=== PATIENT | female | born 1960 | race Caucasian/White ===

== ENCOUNTER 2019-05-08 21:39 | Emergency (ER) | payer OTHER ==
[~2019-05-08] VITALS: Ht 165.1 cm; Wt 71.7 kg
[~2019-05-08 21:39] MED LIST: ALBU2.5V7 INH; BACL10TA PO; BUPR-120 PO; CALC-823 PO; HYDR25TA4 PO; LORA-259 PO; PRO40 PO; VENL75CA PO; VITA1CAP PO
[2019-05-08 21:50] VITALS: BP_SYST 164
[2019-05-08] MEDS ORDERED: LORazepam 1 MG TABLET PO ONE (23:00)
[2019-05-08] MEDS: METOPROLOL SUCCINATE 25 MG TAB.SR.24H (TOPROL XL) PO ONE (23:31)
[2019-05-09 00:10] LABS: BASOPHILS # (AUTO) 0.1 K/uL (0.0-0.2); BASOPHILS % (AUTO) 0.7 % (0.0-2.0); EOSINOPHILS # (AUTO) 0.1 K/uL (0.0-0.4); EOSINOPHILS % (AUTO) 1.2 % (0.0-4.0); HEMATOCRIT 36.8 % (36-48); HEMOGLOBIN 12.5 g/dL (12.0-16.0); LYMPHOCYTES # (AUTO) 2.2 K/uL (1.0-5.5); LYMPHOCYTES % (AUTO) 21.2 % (20.5-51.5); MEAN CORPUSCULAR HEMOGLOBIN 31 pg (27-31); MEAN CORPUSCULAR HGB CONC 34 % (32-36); MEAN CORPUSCULAR VOLUME 92 fL (79.0-98.0); MONOCYTES # (AUTO) 0.7 K/uL (0.0-1.0); MONOCYTES % (AUTO) 6.5 % (1.7-9.3); NEUTROPHILS # (AUTO) 7.3 K/uL (1.8-7.7); NEUTROPHILS % (AUTO) 70.4 % (40.0-70.0); PLATELET COUNT (AUTO) 269 K/uL (130-430); RED CELL DISTRIBUTION WIDTH 12.4 % (9.0-15.0); WHITE BLOOD COUNT (AUTO) 10.4 K/uL (4.8-10.8)
[2019-05-09 00:30] LABS: CALCIUM 8.4 mg/dL (8.4-11.0); CREATININE 0.7 mg/dL (0.55-1.30); POTASSIUM 3.3 mmol/L (3.5-5.1)
[2019-05-09 00:44] LABS: ALBUMIN 3.2 g/dL (3.4-4.8)
[2019-05-09] MEDS ORDERED: METOPROLOL SUCCINATE 25 MG TAB.SR.24H (TOPROL XL) PO ONE (00:44)
[2019-05-09] MEDS: METOPROLOL SUCCINATE 25 MG TAB.SR.24H (TOPROL XL) PO ONE (00:47)
[2019-05-09 00:56] LABS: TOTAL BILIRUBIN 0.1 mg/dL (0.0-1.0)
[2019-05-09] MEDS ORDERED: cloNIDine HCL 0.1 MG TABLET PO ONE (01:30)
[2019-05-09] MEDS ORDERED: LORazepam 1 MG TABLET PO ONE (01:30)
[2019-05-09 02:33] VITALS: BP_SYST 162
== END 2019-05-09 02:33 | disposition home or self-care (01) ==
LOC: MERGE 21:39 → SED 21:39
DX: F41.9 Anxiety disorder, unspecified (principal); I10 Essential (primary) hypertension; I48.91 Unspecified atrial fibrillation; Z91.040 Latex allergy status; Z79.899 Other long term (current) drug therapy
CPT/HCPCS: 36415; 80053; 84484; 85025; 93005; 99284

== ENCOUNTER 2019-05-11 13:33 | Inpatient (IN) | payer OTHER ==
[~2019-05-11] VITALS: Ht 165.1 cm; Wt 70.8 kg
[2019-05-11 13:39] VITALS: BP_SYST 174
--- NOTE | 2019-05-11 13:49 | NUR ---
Patient to ER bed 3 to gown for evaluation. Side rails up. Report given to Gerald HILL.
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
[2019-05-11] MEDS ORDERED: PANTOPRAZOLE SODIUM 80 MG in NS 100 ML IV ONE (14:00)
--- NOTE | 2019-05-11 14:06 | NUR ---
PATIENT GETTING X RAY IN BED.
--- NOTE | 2019-05-11 14:11 | NUR ---
PATIENT AMBULATING TO RESTROOM WITH CANE. PATIENT HAS STEADY GAIT.
--- NOTE | 2019-05-11 14:15 | NUR ---
ER Dr. CHAUDHARI at bedside examining patient.
[2019-05-11] MEDS ORDERED: PANTOPRAZOLE SODIUM 40 MG/VIAL (PROTONIX) ONE (14:21)
[2019-05-11 14:30] LABS: BASOPHILS # (AUTO) 0.1 K/uL (0.0-0.2); BASOPHILS % (AUTO) 0.5 % (0.0-2.0); EOSINOPHILS # (AUTO) 0.1 K/uL (0.0-0.4); EOSINOPHILS % (AUTO) 0.7 % (0.0-4.0); HEMATOCRIT 38.3 % (36-48); HEMOGLOBIN 12.6 g/dL (12.0-16.0); LYMPHOCYTES % (AUTO) 19.1 % (20.5-51.5); MEAN CORPUSCULAR HEMOGLOBIN 31 pg (27-31); MEAN CORPUSCULAR HGB CONC 33 % (32-36); MEAN CORPUSCULAR VOLUME 93 fL (79.0-98.0); MONOCYTES # (AUTO) 0.5 K/uL (0.0-1.0); MONOCYTES % (AUTO) 4.8 % (1.7-9.3); NEUTROPHILS # (AUTO) 7.8 K/uL (1.8-7.7); NEUTROPHILS % (AUTO) 74.9 % (40.0-70.0); PLATELET COUNT (AUTO) 334 K/uL (130-430); RED BLOOD CELL COUNT(AUTO) 4.11 MIL/uL (4.2-6.2); RED CELL DISTRIBUTION WIDTH 12.8 % (9.0-15.0); WHITE BLOOD COUNT (AUTO) 10.5 K/uL (4.8-10.8)
[2019-05-11 14:46] LABS: CALCIUM 9.5 mg/dL (8.4-11.0); CREATININE 0.92 mg/dL (0.55-1.30); POTASSIUM 3.3 mmol/L (3.5-5.1)
[2019-05-11 14:51] LABS: ALBUMIN 3.6 g/dL (3.4-4.8); TOTAL BILIRUBIN 0.3 mg/dL (0.0-1.0)
--- NOTE | 2019-05-11 15:09 | NUR ---
DR CHAUDHARI AT BEDSIDE DOING STOOL OCCULT. IM AT BEDSIDE. PATIENT TOLERATED WELL.
--- NOTE | 2019-05-11 15:35 | NUR ---
SPOKE TO PATIENT ABOUT END OF LIFE CARE. PATIENT STATES SHE IS FULL CODE.
[2019-05-11] MEDS ORDERED: ACET-73 PO (15:59)
[2019-05-11] MEDS ORDERED: ASPI-1155 PO (15:59)
[2019-05-11] MEDS ORDERED: BUPR450T2 PO (15:59)
[2019-05-11] MEDS ORDERED: LIP10 PO (15:59)
[2019-05-11] MEDS ORDERED: BACL5TAB PO (15:59)
[2019-05-11] MEDS ORDERED: HYDR25TA4 PO (15:59)
[2019-05-11] MEDS ORDERED: Trintellix PO (15:59)
[2019-05-11] MEDS ORDERED: ALBMDI INH (15:59)
[2019-05-11] MEDS ORDERED: KLO1 PO (15:59)
[2019-05-11] MEDS ORDERED: LORA10TA7 PO (15:59)
--- NOTE | 2019-05-11 15:59 | NUR ---
Medication reconciliation completed with information provided by patient. Any prior medication reconciliation on file was reviewed and corrected.
--- NOTE | 2019-05-11 16:02 | NUR ---
Patient will be admitted to care of DR PORRAS. Admitted to MED SURGE unit. Will go to room 107A. Belongings list completed. Summary report printed. Report will be given at bedside.
[2019-05-11 16:12] LABS: HEMOGLOBIN 11.3 g/dL (12.0-16.0)
--- NOTE | 2019-05-11 16:32 | NUR ---
GAVE REPORT TO YOLI ON FLOOR.
--- NOTE | 2019-05-11 16:34 | NUR ---
Transfer to [facility]. IV present no sign or symptom of infiltration.
[2019-05-11 16:40] VITALS: BP_SYST 141
--- NOTE | 2019-05-11 16:40 | NUR ---
Admission Notes: Received patient from ER. Report received from LIZ Mejia. Diagnosis is Gastro Intestinal Bleed. Pt is alert and oriented , pt has chronic pain, 06/28. will check orders of MD. safety precaution in place, call light in reach. bed in low position. pt encouraged to call for assist, pain and any concerns.
--- NOTE | 2019-05-11 17:00 | NUR ---
CONSULT GI DR. BYRNE S/W MITCHELL FROM THE EXCHANGE DR. RINCON SOFT TOP INSTALLER AT THIS TIME
[2019-05-11 17:05] VITALS: BP_SYST 141
[2019-05-11] MEDS: D5NS 1,000 ML IV SCH (18:01)
--- NOTE | 2019-05-11 18:43 | NUR ---
CLOSING NOTES, PT HAS BEEN STABLE, C/O OF PAIN, GENERALIZED, PT HAS HISTORY OF CHRONIC PAIN. 06/[address] QUESADA FOR PAIN MEDICATION, STILL WAITING FOR MD TO CALL BACK. WILL ENDORSE TO NIGHT NURSE.
--- NOTE | 2019-05-11 18:48 | NUR ---
Deysi Kramer s/w Laura.
[2019-05-11] MEDS ORDERED: ACETAMINOPHEN 500 MG TABLET PO PRN (19:15)
[2019-05-11] MEDS ORDERED: MORPHINE 2 MG/ML INJ. SYRINGE IVP PRN (19:15)
--- NOTE | 2019-05-11 19:20 | NUR ---
OPENING NOTE RECEIVED CARE OF PT AND SBAR REPORT FROM DAY SHIFT RN, PADDY. PT IS AAOX4, SITTING UP IN BED, NO S/S OF ACUTE DISTRESS. IVF ARE INFUSING AT ORDERED RATE, NO S/S OF INFILTRATION AT IV SITE. PT ORIENTED TO USE OF CALL LIGHT AND ENCOURAGED TO CALL FOR ANY ASSISTANCE. SAFETY PRECAUTIONS ARE IN PLACE: BED IS LOCKED IN LOWEST POSITION, CALL LIGHT IS WITH PT, SIDE RAILS UP X2, BED ALARM ON. WILL MONITOR.
[2019-05-11 20:00] VITALS: BP_SYST 148
[2019-05-11] MEDS: ACETAMINOPHEN 500 MG TABLET PO SCH (21:25)
[2019-05-11] MEDS: PANTOPRAZOLE SODIUM 40 MG/VIAL (PROTONIX) IVP SCH (21:25)
--- NOTE | 2019-05-11 21:25 | NUR ---
SCHEDULED MEDICATION PASS SCHEDULED PROTONIX AND TYLENOL ADMINISTERED TO PT. MEDICATION ACTIONS AND POTENTIAL SIDE EFFECTS EXPLAINED, PT VERBALIZED UNDERSTANDING. SAFETY PRECAUTIONS MAINTAINED. WILL MONITOR.
--- NOTE | 2019-05-11 21:46 | NUR ---
Deysi Kramer s/w Alysha
--- NOTE | 2019-05-11 22:26 | NUR ---
SPOKE TO DR. QUESADA REGARDING PT'S REQUEST TO CONTINUE HER HOME MEDICATIONS. MD ORDERED A ONE TIME DOSE OF KLONOPIN 1MG PO AND ATIVAN 1 MG PO Q4H PRN FOR ANXIETY OR AGITATION. WILL CARRY OUT.
[2019-05-11] MEDS ORDERED: clonazePAM 0.5 MG TABLET PO ONE (22:30)
--- NOTE | 2019-05-11 22:32 | NUR ---
KLONOPIN ONE TIME DOSE OF KLONOPIN 1 MG PO GIVEN TO PT. MEDICATION EXPLAINED TO PT, PT VERBALIZED UNDERSTANDING. SAFETY MAINTAINED. WILL MONITOR.
[2019-05-11] MEDS: LORazepam 1 MG TABLET PO PRN (23:39)
--- NOTE | 2019-05-11 23:39 | NUR ---
ANXIETY/ATIVAN PT REPORTING ANXIETY, ATIVAN 1 MG PO ADMINISTERED. MEDICATION EXPLAINED TO PT. NO S/S OF ACUTE DISTRESS. IVF ARE INFUSING AT ORDERED RATE. SAFETY PRECAUTIONS ARE IN PLACE. WILL MONITOR.
[2019-05-12] VITALS (7 sets, daily range): BP systolic 119–138
[2019-05-12 01:20] LABS: HEMATOCRIT 29.8 % (36-48)
--- NOTE | 2019-05-12 02:30 | NUR ---
AMBULATED TO RESTROOM PT AMBULATED TO RESTROOM WITH STEADY GAIT AND ASSISTANCE FROM LEONIDES DUCKWORTH. PT RETURNED TO BED AND REPOSITIONED FOR COMFORT. SAFETY PRECAUTIONS MAINTAINED. WILL MONITOR.
[2019-05-12] MEDS: D5NS 1,000 ML IV SCH ×3 (03:14→23:15)
[2019-05-12] MEDS: LORazepam 1 MG TABLET PO PRN ×4 (04:03→23:15)
--- NOTE | 2019-05-12 04:03 | NUR ---
ANXIETY/ATIVAN PT REPORTING ANXIETY, ATIVAN 1 MG PO ADMINISTERED. PT ALSO GIVEN EAR PLUGS PER REQUEST. NO S/S OF DISTRESS. IVF INFUSING. WILL MONITOR.
--- NOTE | 2019-05-12 06:44 | NUR ---
CLOSING NOTE PT IS RESTING IN BED, NO S/S OF ACUTE DISTRESS. BREATHING IS UNLABORED TO BIPAP SETTINGS (BIPAP 6 AT 21% FIO2), VISIBLE SYMMETRICAL RISE AND FALL OF CHEST. NO SIGN OF PAIN OR DISCOMFORT. IVF ARE INFUSING AT ORDERED RATE. ALL NEEDS MET DURING SHIFT. SAFETY MAINTAINED. WILL CONTINUE TO MONITOR UNTIL PT CARE IS ENDORSED TO DAY SHIFT RN.
--- NOTE | 2019-05-12 07:10 | NUR ---
received report at the bedside. from demetrius nurse. patient aaox 4. lungs bilaterally clear. abdomen soft and non distended. iv access on the rt ac #20 D5NS at 100cc/hr infusing on well,. bed in low position, alarmed and locked. call lights within reach. instructed to call for assistance.
[2019-05-12] MEDS: ACETAMINOPHEN 500 MG TABLET PO SCH ×3 (08:06→20:15)
[2019-05-12] MEDS: ATORVASTATIN 10 MG TABLET PO SCH (08:06)
[2019-05-12] MEDS: PANTOPRAZOLE SODIUM 40 MG/VIAL (PROTONIX) IVP SCH ×2 (08:06→20:14)
[2019-05-12 08:27] LABS: HEMATOCRIT 31.8 % (36-48); HEMOGLOBIN 10.7 g/dL (12.0-16.0)
--- NOTE | 2019-05-12 08:28 | NUR ---
dr nino came to evaluate the patient. due medication given as ordered.
--- NOTE | 2019-05-12 08:38 | NUR ---
DR PORRAS CAME TO SEE PATIENT PATIENT VERBALIZED HER CONCERNED TO DR PORRAS REGARDING HER PREVIOUS ADMISSION ABOUT THE RESULTS OF HER CXR RESULTS FROM HER PREVIOUS ADMISSION LAST NOVEMBER. PATIENT SHE SAID BEFORE SHE WAS DISCHARGE LAST NOVEMBER DR PORRAS TOLD HER THAT HER CXR WAS FINE, BUT THEN WHEN SHE WENT TO HER PCP AFTER 4 WEEKS, SHE FOUND OUT THAT SHE HAD MILD COMPRESSION FRACTURE L1. DR PORRAS APOLOGIZED AND HE SAID THAT IF HE SAID IT'S FINE, THAT MEANS NOTHING ALARMING LIKE CANCER ETC., HE EXPLAINED TO PATIENT ALSO THAT BASED ON HER INSURANCE, HE IS THE ONLY DOCTOR THAT CAN SEE HER. PATIENT VERBALIZED OF UNDERSTANDING AND AGREED TO BE SEEN BY DR PORRAS AND ALSO HER ATTENDING PHYSICIAN WHILE SHE IS ON HOSPITAL. Addendum: 05/12/19 at 1058 by Sara Glaser RN Above notes clarification regarding change of Attending Physician while in [facility] Patient verbalized her concerned to Dr. Porras regarding change of Attending Physician while in hospital. Patient stated that she got upset to the last time she was here on November because before she was sent home with the impression that her CXR results was "fine". But when she saw her PCP after 4 weeks she found out that she had a mild compression fracture L1. Dr. Porras apologized to patient and said that when he said it's fine, meaning nothing alarming like cancer etc.,Dr. Porras said based on patient's insurance he is the assigned doctor to see the patient while she is in the hospital, patient has option to change her attending physician but she will pay privately. Patient stated that she doesn't want to pay privately and she agreed to see Dr. Porras and be her attending physician while in the hospital.
--- NOTE | 2019-05-12 09:20 | NUR ---
due medication given as ordered.
--- NOTE | 2019-05-12 10:30 | NUR ---
assisted by Soha charge nurse to the bathroom
[2019-05-12] MEDS: buPROPion HCL 150 MG XL TAB PO SCH (10:36)
[2019-05-12] MEDS: clonazePAM 0.5 MG TABLET PO SCH ×3 (10:36→20:15)
[2019-05-12] MEDS: LORATADINE 10 MG TABLET PO PRN (10:41)
--- NOTE | 2019-05-12 12:00 | NUR ---
eating lunch and while watching tv.
--- NOTE | 2019-05-12 14:00 | NUR ---
hanged a new iv bag. assists on adls.
--- NOTE | 2019-05-12 15:00 | NUR ---
due medication given as ordered.
--- NOTE | 2019-05-12 15:06 | NUR ---
refused to have ativan po
[2019-05-12 16:09] LABS: HEMATOCRIT 31.2 % (36-48); HEMOGLOBIN 10.5 g/dL (12.0-16.0)
--- NOTE | 2019-05-12 16:23 | NUR ---
Railcar Brake Operator Note: Follow up for c/o Anxiety CRANBERRY SORTER met with client at bedside, referral from MD for Anxiety. Pt. was open to speaking with CRANBERRY SORTER. She reported that she is not in need of MH resources as she is already seeking treatment with a psychiatrist Dr. Antony and therapy with psychologist Dr. Contreras for anxiety and depression. She reported that she intends to continue treatment with these Mental Health providers. CRANBERRY SORTER provided reflective listening, she had no further concerns at this time. Pt. was made aware that executive secretary social welfare is available to her should the need arise.
--- NOTE | 2019-05-12 18:34 | NUR ---
PAGED PAGED DOCTOR TROUNG
--- NOTE | 2019-05-12 18:43 | NUR ---
dr phan called for orders for diet. awaiting to call back
--- NOTE | 2019-05-12 18:45 | NUR ---
for possible egd in am.
--- NOTE | 2019-05-12 19:13 | NUR ---
2 PAGED PAGED DOCTOR JEFFERSON FOR ORDERS
--- NOTE | 2019-05-12 19:20 | NUR ---
Opening notes Received report. Patient resting in bed. No signs of distress noted. Breathing even and unlabored. IV patent and intact, infusing fluids. No needs. call light with the patient. Safety precautions in place.
--- NOTE | 2019-05-12 20:13 | NUR ---
3RD PAGED PAGED DOCTOR SIMONNG
--- NOTE | 2019-05-12 20:15 | NUR ---
Medications given. Educated the action and side effects of medications. Patient verbalized understanding and tolerated well. No other needs. Call light with the patient. Safety precautions in place.
[2019-05-12] MEDS: VORTIOXETINE 10 MG PO SCH (20:16)
--- NOTE | 2019-05-12 22:00 | NUR ---
Dr. Briscoe called back MD states patient can be on clear liquids until midnight.
--- NOTE | 2019-05-12 23:05 | NUR ---
Consent for EGD Patient stated Dr. Briscoe explained test to patient and has agreed to procedure. Consent signed and placed in chart.
[2019-05-12 23:34] LABS: HEMATOCRIT 29.7 % (36-48); HEMOGLOBIN 9.7 g/dL (12.0-16.0)
--- NOTE | 2019-05-13 | NUR ---
NPO Patient is NPO. Patient verbalized that she should not have anything by mouth. No other needs. Call light with the patient. Safety precautions in place.
--- NOTE | 2019-05-13 02:23 | NUR ---
Sleeping No signs of distress noted. Breathing even and unlabored. IVF infusing well. Call light with the patient. Safety precautions in place.
--- NOTE | 2019-05-13 04:30 | NUR ---
Sleeping No signs of distress noted. Breathing even and unlabored. Call light with the patient. Safety precautions in place.
--- NOTE | 2019-05-13 06:54 | NUR ---
Closing notes Patient resting comfortably in bed, no signs of distress noted. Breathing even and unlabored. IV patent and intact, infusing fluids. NPO status maintained. All needs met throughout the shift. Call light with the patient. Safety precautions in place. Will endorse care to day shift RN.
--- NOTE | 2019-05-13 07:12 | NUR ---
report received a the bedside. patient still asleep. has iv access on the rt ac #20 w/D5Ns 100cc/hr infusing on well. lungs bilterally clear. abdomen soft and non distended. bed in low position. call ligths within reach. no pain nor acute distress noted.
[2019-05-13 07:49] VITALS: BP_SYST 141
--- NOTE | 2019-05-13 07:59 | NUR ---
patient aaox 4. vitals signs stable and afebrile. has cpap machine inside the room. no pain nor acute distress noted.
[2019-05-13 08:41] LABS: HEMATOCRIT 34.4 % (36-48); HEMOGLOBIN 11.3 g/dL (12.0-16.0)
[2019-05-13] MEDS: clonazePAM 0.5 MG TABLET PO SCH ×3 (09:00→20:28)
[2019-05-13] MEDS: ACETAMINOPHEN 500 MG TABLET PO SCH ×3 (09:00→20:28)
--- NOTE | 2019-05-13 09:00 | NUR ---
still on npo status for the procedure.
[2019-05-13 09:02] LABS: PROTHROMBIN TIME 10.3 SECS (9.5-12.5)
--- NOTE | 2019-05-13 09:13 | NUR ---
Rounds with Dr Monge In the room with Dr Monge. Patient agreed to be seen and be care for by Dr Monge.
[2019-05-13] MEDS ORDERED: LORazepam 2 MG/ML VIAL IVP ONE (09:15)
--- NOTE | 2019-05-13 09:26 | NUR ---
ativan 1 mg iv given as ordered for severe anxiety.
[2019-05-13] MEDS: D5NS 1,000 ML IV SCH ×2 (09:30→20:43)
[2019-05-13] MEDS: PANTOPRAZOLE SODIUM 40 MG/VIAL (PROTONIX) IVP SCH ×2 (09:34→20:28)
[2019-05-13] MEDS ORDERED: SIMETHICONE 40 MG/0.6 ML ML ONE (09:45)
[2019-05-13] MEDS ORDERED: MIDAZOLAM HCL 5 MG/5 ML VIAL ONE (09:46)
[2019-05-13] MEDS ORDERED: fentaNYL CITRATE/PF 100 MCG/2 ML AMP ONE (09:46)
--- NOTE | 2019-05-13 10:37 | NUR ---
patient cherry picker operator by GI lab nurse. for EGD procedure.
[2019-05-13 11:32] VITALS: BP_SYST 114
[2019-05-13] MEDS ORDERED: fentaNYL CITRATE/PF 100 MCG/2 ML AMP IVP PRN ×2 (12:15)
--- NOTE | 2019-05-13 12:20 | NUR ---
patient came back from egd procedure. patient alert awake. verbalized wants to eat. but has pain.
[2019-05-13] MEDS: ATORVASTATIN 10 MG TABLET PO SCH (12:21)
[2019-05-13] MEDS: buPROPion HCL 150 MG XL TAB PO SCH (12:22)
[2019-05-13] MEDS: LORATADINE 10 MG TABLET PO PRN (12:30)
--- NOTE | 2019-05-13 12:31 | NUR ---
patient had due mediction given. call for soft low fiber diet lunch tray.
[2019-05-13 15:33] VITALS: BP_SYST 123
--- NOTE | 2019-05-13 15:46 | NUR ---
DC Plan: Follow up with PCP Dr. Chicas - Per IPC, patient needs to call to schedule own appt. Follow up with GI Dr. Arauz on 06/15/19 at 10:15am at [address] [place] [id number] Negar Leger, HCP Marketing Automation Analyst [phone]
--- NOTE | 2019-05-13 16:09 | NUR ---
Dietitian Recommendations * Recommend continuing soft (low fiber/bland) diet LP, RD Please refer to Nutrition Assessment for details. Addendum: 05/13/19 at [address] Amended: Links added.
[2019-05-13 16:30] LABS: HEMATOCRIT 29.7 % (36-48)
[2019-05-13 16:31] LABS: HEMOGLOBIN 9.9 g/dL (12.0-16.0)
--- NOTE | 2019-05-13 18:13 | NUR ---
eating dinner tray now. made comfortable.
--- NOTE | 2019-05-13 19:38 | NUR ---
endorsed to incoming nurse.
[2019-05-13 20:26] VITALS: BP_SYST 149
--- NOTE | 2019-05-13 20:26 | NUR ---
Opening notes Pt AAOx4, no s/s distress noted. Pt c/o chronic pain, pt on scheduled extra strength Tylenol. IVF infusing at ordered rate R AC no s/s infiltration. Call light within reach. Safety measures in place. To monitor.
[2019-05-13] MEDS: VORTIOXETINE 10 MG PO SCH (20:28)
--- NOTE | 2019-05-13 22:15 | NUR ---
Rounds Pt alert, awake, resting in bed. No s/s distress noted. Call light/items within reach. To monitor.
[2019-05-13 22:42] VITALS: BP_SYST 116
[2019-05-13 23:30] LABS: HEMATOCRIT 27.6 % (36-48); HEMOGLOBIN 9.4 g/dL (12.0-16.0)
[2019-05-14] MEDS: LORazepam 1 MG TABLET PO PRN ×2 (00:37→06:32)
--- NOTE | 2019-05-14 00:37 | NUR ---
Ativan Pt requested Ativan PO, Ativan 1mg PO given as well as water and snacks, pt grateful. Call light within reach. To monitor.
[2019-05-14] MEDS: D5NS 1,000 ML IV SCH ×2 (04:00→06:33)
--- NOTE | 2019-05-14 04:05 | NUR ---
Rounds Pt asleep, no s/s distress noted. IVF infusing at ordered rate. Call light within reach. To monitor.
--- NOTE | 2019-05-14 06:38 | NUR ---
Closing notes Pt awake, no s/s distress noted. Pt ambulates to bathroom. Pt had a bowel movement this AM, c/o constipation. Pt Ativan given per pt request. Call light within reach. Safety measures in place. To endorse to AM nurse.
[2019-05-14 08:00] VITALS: BP_SYST 116
--- NOTE | 2019-05-14 08:00 | NUR ---
OPENING NOTE: RECEIVED REPORT FROM NIGHT NURSE. PATIENT IS ALERT AND ORIENTED. NO S/S OF ACUTE DISTRESS OR SOB. PATIENT ON ROOM AIR. IV IS PATENT AND INFUSING D5NS @100 CC/HR. CALL LIGHT IN REACH, BED IN LOWEST POSITION, AND WILL CONTINUE TO MONITOR.
[2019-05-14 08:15] LABS: HEMATOCRIT 28.9 % (36-48); HEMOGLOBIN 9.8 g/dL (12.0-16.0)
[2019-05-14] MEDS ORDERED: DOCUSATE SODIUM 100 MG CAPSULE PO PRN (08:15)
[2019-05-14] MEDS: clonazePAM 0.5 MG TABLET PO SCH (08:57)
[2019-05-14] MEDS: PANTOPRAZOLE SODIUM 40 MG/VIAL (PROTONIX) IVP SCH (08:57)
[2019-05-14] MEDS: buPROPion HCL 150 MG XL TAB PO SCH (08:57)
[2019-05-14] MEDS: ATORVASTATIN 10 MG TABLET PO SCH (08:58)
[2019-05-14] MEDS: ACETAMINOPHEN 500 MG TABLET PO SCH (08:58)
[2019-05-14] MEDS ORDERED: POLYETHYLENE GLYCOL 3350, 17 GM/ POWD.PACK PO SCH (09:00)
[2019-05-14] MEDS: LORATADINE 10 MG TABLET PO PRN (10:47)
[2019-05-14 11:24] VITALS: BP_SYST 135
[2019-05-14] MEDS ORDERED: PRO40 PO (11:27)
[2019-05-14 12:00] VITALS: BP_SYST 135
--- NOTE | 2019-05-14 12:10 | NUR ---
D/C Patient Patient given medication reconciliation form and D/C instructions. Exit Care provided. Patient verbalized understanding. MD discussed with patient the results and treatment provided. Ambulatory with steady gait for discharge to home. Patient in stable condition, ID band removed. IV catheter removed, intact and dressing applied, no active bleeding. Rx of Protonix and MVT given. Patient educated on pain management. All belongings sent with patient.
== END 2019-05-14 12:10 | disposition home or self-care (01) | DRG 393 ==
LOC: SED 13:33 → SMU 15:50 → MERGE 15:50 → SMU 16:34
PROVIDERS: ADMIT Internal Medicine Hospice and Palliative Medicine; ATTEND Internal Medicine Hospice and Palliative Medicine
PROC: 0DB68ZX Excision of Stomach, Via Natural or Artificial Opening Endoscopic, Diagnostic (ICD-10-PCS; 2019-05-13)
PROC: 0DBA8ZX Excision of Jejunum, Via Natural or Artificial Opening Endoscopic, Diagnostic (ICD-10-PCS; principal; 2019-05-13 12:00)
DX: K91.89 Other postprocedural complications and disorders of digestive system (principal); K28.4 Chronic or unspecified gastrojejunal ulcer with hemorrhage; E78.5 Hyperlipidemia, unspecified; F32.9 Major depressive disorder, single episode, unspecified; F41.9 Anxiety disorder, unspecified; I10 Essential (primary) hypertension; I48.91 Unspecified atrial fibrillation; M81.0 Age-related osteoporosis without current pathological fracture; Z79.82 Long term (current) use of aspirin; Z87.11 Personal history of peptic ulcer disease; Z98.84 Bariatric surgery status; Z91.040 Latex allergy status
CPT/HCPCS: 36415; 43239; 71045; 80053; 85018-TC; 85025; 85610-TC; 85730-TC; 86886; 86900; 86901; 87081; 88304; 93005; 94660; 96374; 99285; C9113; J2060; J2250; J3010; J7042

== ENCOUNTER 2019-05-27 10:43 | Emergency (ER) | payer OTHER ==
[~2019-05-27] VITALS: Ht 165.1 cm; Wt 68.0 kg
[2019-05-27 10:43] VITALS: BP_SYST 155
[~2019-05-27 10:43] MED LIST changes: +ACET-73 PO; +ALBMDI INH; +BACL5TAB PO; +BUPR450T2 PO; +KLO1 PO; +LIP10 PO; +LORA10TA7 PO; +Trintellix PO
[2019-05-27 11:17] LABS: BASOPHILS # (AUTO) 0.1 K/uL (0.0-0.2); BASOPHILS % (AUTO) 0.7 % (0.0-2.0); EOSINOPHILS # (AUTO) 0.2 K/uL (0.0-0.4); EOSINOPHILS % (AUTO) 2.4 % (0.0-4.0); HEMATOCRIT 34.5 % (36-48); HEMOGLOBIN 11.8 g/dL (12.0-16.0); LYMPHOCYTES # (AUTO) 2.3 K/uL (1.0-5.5); LYMPHOCYTES % (AUTO) 31.2 % (20.5-51.5); MEAN CORPUSCULAR HEMOGLOBIN 31 pg (27-31); MEAN CORPUSCULAR HGB CONC 34 % (32-36); MEAN CORPUSCULAR VOLUME 89 fL (79.0-98.0); MONOCYTES # (AUTO) 0.5 K/uL (0.0-1.0); MONOCYTES % (AUTO) 7.2 % (1.7-9.3); NEUTROPHILS # (AUTO) 4.3 K/uL (1.8-7.7); NEUTROPHILS % (AUTO) 58.5 % (40.0-70.0); PLATELET COUNT (AUTO) 313 K/uL (130-430); RED BLOOD CELL COUNT(AUTO) 3.88 MIL/uL (4.2-6.2); RED CELL DISTRIBUTION WIDTH 12.9 % (9.0-15.0); WHITE BLOOD COUNT (AUTO) 7.4 K/uL (4.8-10.8)
[2019-05-27 11:32] LABS: CALCIUM 9.5 mg/dL (8.4-11.0); CREATININE 0.77 mg/dL (0.55-1.30); POTASSIUM 3.6 mmol/L (3.5-5.1)
[2019-05-27 11:38] LABS: ALBUMIN 3.4 g/dL (3.4-4.8); TOTAL BILIRUBIN 0.3 mg/dL (0.0-1.0)
[2019-05-27 13:00] VITALS: BP_SYST 132
== END 2019-05-27 13:00 | disposition home or self-care (01) ==
LOC: SED 10:43
DX: T44.5X1A Poisoning by predominantly beta-adrenoreceptor agonists, accidental (unintentional), initial encounter (principal); T39.1X1A Poisoning by 4-Aminophenol derivatives, accidental (unintentional), initial encounter; T42.4X1A Poisoning by benzodiazepines, accidental (unintentional), initial encounter; T42.8X1A Poisoning by antiparkinsonism drugs and other central muscle-tone depressants, accidental (unintentional), initial encounter; T50.2X1A Poisoning by carbonic-anhydrase inhibitors, benzothiadiazides and other diuretics, accidental (unintentional), initial encounter; T46.6X1A Poisoning by antihyperlipidemic and antiarteriosclerotic drugs, accidental (unintentional), initial encounter; I48.91 Unspecified atrial fibrillation; Z91.040 Latex allergy status; Z79.899 Other long term (current) drug therapy; Y92.89 Other specified places as the place of occurrence of the external cause
CPT/HCPCS: 36415; 80053; 82550; 84484; 85025; 93005; 99284; G0480

== ENCOUNTER 2019-05-27 22:38 | Observation (INO) | payer OTHER ==
[~2019-05-27] VITALS: Ht 165.1 cm; Wt 68.0 kg
[2019-05-27 22:45] VITALS: BP_SYST 155
[2019-05-27] MEDS ORDERED: NACL 0.9% 1,000 ML IV ONE (23:30)
[2019-05-28 00:19] LABS: BASOPHILS % (AUTO) 0.4 % (0.0-2.0); EOSINOPHILS # (AUTO) 0.1 K/uL (0.0-0.4); EOSINOPHILS % (AUTO) 1.2 % (0.0-4.0); HEMOGLOBIN 11.1 g/dL (12.0-16.0); LYMPHOCYTES # (AUTO) 1.7 K/uL (1.0-5.5); LYMPHOCYTES % (AUTO) 21.3 % (20.5-51.5); MEAN CORPUSCULAR HEMOGLOBIN 30 pg (27-31); MEAN CORPUSCULAR HGB CONC 34 % (32-36); MEAN CORPUSCULAR VOLUME 89 fL (79.0-98.0); MONOCYTES # (AUTO) 0.6 K/uL (0.0-1.0); MONOCYTES % (AUTO) 7.1 % (1.7-9.3); NEUTROPHILS # (AUTO) 5.5 K/uL (1.8-7.7); PLATELET COUNT (AUTO) 270 K/uL (130-430); RED BLOOD CELL COUNT(AUTO) 3.72 MIL/uL (4.2-6.2); RED CELL DISTRIBUTION WIDTH 13.1 % (9.0-15.0); WHITE BLOOD COUNT (AUTO) 7.9 K/uL (4.8-10.8)
[2019-05-28 00:37] LABS: CALCIUM 8.6 mg/dL (8.4-11.0); CREATININE 0.74 mg/dL (0.55-1.30); POTASSIUM 3.5 mmol/L (3.5-5.1)
[2019-05-28 00:49] LABS: ALBUMIN 3.5 g/dL (3.4-4.8); TOTAL BILIRUBIN 0.4 mg/dL (0.0-1.0)
[2019-05-28 01:52] LABS: BILIRUBIN,URINE NEGATIVE (NEGATIVE); BLOOD, URINE NEGATIVE (NEGATIVE); CLARITY/URINE CLEAR (CLEAR); COLOR,URINE YELLOW (YELLOW); GLUCOSE,URINE NEGATIVE (NEGATIVE); KETONES,URINE NEGATIVE (NEGATIVE); LEUKOCYTE ESTERASE ,URINE NEGATIVE (NEGATIVE); NITRITE, URINE NEGATIVE (NEGATIVE); PH,URINE 6.5 (5.0-8.0); PROTEIN URINE NEGATIVE (NEGATIVE); UROBILINOGEN,URINE 0.2 (0.2-1.0)
[2019-05-28 02:01] VITALS: BP_SYST 161
[2019-05-28 08:00] VITALS: BP_SYST 144
[2019-05-28] MEDS ORDERED: ENALAPRILAT DIHYDRATE 1.25 MG/ML VIAL IVP PRN (08:00)
[2019-05-28] MEDS ORDERED: cloNIDine HCL 0.1 MG TABLET PO PRN (08:00)
[2019-05-28] MEDS ORDERED: PANTOPRAZOLE SODIUM 40 MG TAB PO ONE (09:45)
[2019-05-28] MEDS ORDERED: clonazePAM 0.5 MG TABLET PO ONE (10:00)
[2019-05-28 12:00] VITALS: BP_SYST 122
[2019-05-28 12:11] VITALS: BP_SYST 122
[2019-05-28] MEDS ORDERED: clonazePAM 0.5 MG TABLET PO SCH (15:00)
[2019-05-28] MEDS ORDERED: PANTOPRAZOLE SODIUM 40 MG TAB PO SCH (21:00)
== END 2019-05-28 14:16 | disposition home or self-care (01) ==
LOC: SED 22:38 → STU 05-28 01:33
PROVIDERS: ADMIT Internal Medicine Hospice and Palliative Medicine; ATTEND Internal Medicine Hospice and Palliative Medicine
DX: T43.291A Poisoning by other antidepressants, accidental (unintentional), initial encounter (principal); E11.9 Type 2 diabetes mellitus without complications; F32.9 Major depressive disorder, single episode, unspecified; I10 Essential (primary) hypertension; F41.9 Anxiety disorder, unspecified; Z98.84 Bariatric surgery status
CPT/HCPCS: 36415; 80053; 81003; 84484; 85025; 87081; 93005 ×2; 93306; 99285; G0378; G0480; 96360

== ENCOUNTER 2019-11-22 18:27 | Emergency (ER) | payer OTHER ==
[~2019-11-22] VITALS: Ht 165.1 cm; Wt 72.6 kg
[~2019-11-22 18:27] MED LIST changes: -ALBU2.5V7 INH; -BACL10TA PO; -LORA-259 PO; -VENL75CA PO
[2019-11-22 18:39] VITALS: BP_SYST 147
[2019-11-22] MEDS ORDERED: NACL 0.9% 1,000 ML IV ONE (19:57)
[2019-11-22] MEDS ORDERED: ASPIRIN 81 MG TAB.CHEW PO ONE (20:00)
[2019-11-22] MEDS ORDERED: NITROGLYCERIN 0.4 MG TAB.SUBL SL ONE (20:00)
--- NOTE | 2019-11-22 20:15 | NUR ---
Patient to ER bed 1 to gown for evaluation. Side rails up.
--- NOTE | 2019-11-22 20:28 | NUR ---
Dr. Drew bedside for pt eval
[2019-11-22 20:46] LABS: BASOPHILS % (AUTO) 0.5 % (0.0-2.0); EOSINOPHILS # (AUTO) 0.1 K/uL (0.0-0.4); EOSINOPHILS % (AUTO) 1.5 % (0.0-4.0); HEMATOCRIT 42.7 % (36-48); HEMOGLOBIN 14.2 g/dL (12.0-16.0); LYMPHOCYTES # (AUTO) 2.7 K/uL (1.0-5.5); LYMPHOCYTES % (AUTO) 33.5 % (20.5-51.5); MEAN CORPUSCULAR HEMOGLOBIN 31 pg (27-31); MEAN CORPUSCULAR HGB CONC 33 % (32-36); MEAN CORPUSCULAR VOLUME 94 fL (79.0-98.0); MONOCYTES # (AUTO) 0.6 K/uL (0.0-1.0); MONOCYTES % (AUTO) 7.1 % (1.7-9.3); NEUTROPHILS # (AUTO) 4.7 K/uL (1.8-7.7); NEUTROPHILS % (AUTO) 57.4 % (40.0-70.0); PLATELET COUNT (AUTO) 221 K/uL (130-430); RED BLOOD CELL COUNT(AUTO) 4.55 MIL/uL (4.2-6.2); RED CELL DISTRIBUTION WIDTH 13.1 % (9.0-15.0); WHITE BLOOD COUNT (AUTO) 8.2 K/uL (4.8-10.8)
--- NOTE | 2019-11-22 20:50 | NUR ---
Pt BIB family to ED C/O mild chest pain for 1 day, pt with extensive hx of anxiety and a few stressful situations at home VSS no s/s of acute disrtess No other complaints and or injuries noted Resting on gurney rails up
[2019-11-22 21:11] LABS: ANION GAP 5 (5-15); CALCIUM 8.8 mg/dL (8.4-11.0); CHLORIDE 100 mmol/L (98-107); CREATININE 0.75 mg/dL (0.55-1.30); GLUCOSE 96 mg/dL (70-99); POTASSIUM 4.2 mmol/L (3.5-5.1); SODIUM SERUM 138 mmol/L (136-145); UREA NITROGEN, BLOOD 15 mg/dL (8-21)
[2019-11-22 21:15] LABS: GFR AFRICAN AMERICAN 101 mL/min (>90)
[2019-11-22 21:20] LABS: ALANINE AMINOTRANSFERASE 38 U/L (12-78); ALBUMIN 3.9 g/dL (3.4-4.8); AMYLASE 54 U/L (0-100); ASPARTATE AMINOTRANSFERASE 18 U/L (10-37); LIPASE 149 U/L (73-393); TOTAL BILIRUBIN 0.2 mg/dL (0.0-1.0)
[2019-11-22 21:30] LABS: ALCOHOL, BLOOD < 3 mg/dL (<10)
--- NOTE | 2019-11-22 21:51 | NUR ---
Pt urine output 400 ml clear yellow, well tolerated
[2019-11-22 21:59] LABS: BILIRUBIN,URINE NEGATIVE (NEGATIVE); BLOOD, URINE NEGATIVE (NEGATIVE); CLARITY/URINE CLEAR (CLEAR); COLOR,URINE YELLOW (YELLOW); GLUCOSE,URINE NEGATIVE (NEGATIVE); KETONES,URINE NEGATIVE (NEGATIVE); LEUKOCYTE ESTERASE ,URINE NEGATIVE (NEGATIVE); NITRITE, URINE NEGATIVE (NEGATIVE); PROTEIN URINE NEGATIVE (NEGATIVE); UROBILINOGEN,URINE 0.2 (0.2-1.0)
[2019-11-22 22:20] LABS: BARBITURATE, URINE NEGATIVE (NEG <=200); BENZODIAZEPINE, URINE NEGATIVE (NEG <=150); CANNABINOID, URINE NEGATIVE (NEG <=50); COCAINE, URINE NEGATIVE (NEG <=150); METHAMPHETAMINES SCREEN,URINE NEGATIVE (NEG <=500); OPIATE, URINE NEGATIVE (NEG <=100); PHENCYCLIDINE SCREEN,URINE NEGATIVE (NEG <=25); UR TRICYCLIC ANTIDEPRESSANTS NEGATIVE (NEG <=300); URINE AMPHETAMINE NEGATIVE (NEG <=500); URINE METHADONE NEGATIVE (NEG <=200); URINE OXYCODONE SCREEN NEGATIVE (NEG <=100); URINE PROPOXYPHENE SCREEN NEGATIVE (NEG <=300)
[2019-11-22 22:30] VITALS: BP_SYST 147
--- NOTE | 2019-11-22 22:30 | NUR ---
Patient given written and verbal discharge instructions and verbalizes understanding. ER MD discussed with patient the results and treatment provided. Patient in stable condition. ID arm band removed. IV catheter removed intact and dressing applied, no active bleeding. Rx of Nitroglycerin given. Patient educated on pain management and to follow up with PMD. Pain Scale 0/10 Opportunity for questions provided and answered. Medication side effect fact sheet provided.
[2019-11-22 22:39] LABS: INR 0.9 (0.8-1.2); PROTHROMBIN TIME 9.5 SECS (9.5-12.5)
== END 2019-11-22 22:30 | disposition home or self-care (01) ==
LOC: SED 18:27
DX: R07.89 Other chest pain (principal); R25.2 Cramp and spasm; K21.9 Gastro-esophageal reflux disease without esophagitis; F41.9 Anxiety disorder, unspecified; Z91.040 Latex allergy status; Z79.899 Other long term (current) drug therapy
CPT/HCPCS: 36415; 71045; 80053; 80307; 81003; 82150; 82550; 83605; 83690; 83880; 84484; 85025; 85610; 85730; 87040; 93005; 99284; G0481; G0482; J7030

== ENCOUNTER 2021-04-18 08:48 | Emergency (ER) | payer OTHER, SELFPAY ==
[~2021-04-18] VITALS: Ht 165.1 cm; Wt 83.9 kg
[~2021-04-18 08:48] MED LIST changes: +ASCO500C18 PO; +BENTYL PO; -BUPR-120 PO; +BUSP10TA3 PO; +DILT120C89 PO; +METO25TA6 PO; +MULT-1117 PO; -Trintellix PO; -VITA1CAP PO; +VORT20TA PO
[2021-04-18 08:50] VITALS: BP_SYST 166
[2021-04-18] MEDS ORDERED: LEVOFLOXACIN IN DEXTROSE 5 % 100 ML IV ONE (09:00)
[2021-04-18] MEDS ORDERED: DILTIAZEM HCL 60 MG TABLET PO ONE (09:15)
[2021-04-18] MEDS ORDERED: DILTIAZEM HCL 25 MG/5 ML VIAL IVP ONE (09:15)
[2021-04-18] MEDS ORDERED: BENI20 IM (09:43)
[2021-04-18] MEDS ORDERED: FLUT16SP16 NS (09:43)
[2021-04-18] MEDS ORDERED: Bentyl PO (09:43)
[2021-04-18] MEDS ORDERED: LIP10 PO (09:43)
[2021-04-18 09:44] LABS: BASOPHILS # (AUTO) 0.1 K/uL (0.0-0.2); BASOPHILS % (AUTO) 0.8 % (0.0-2.0); EOSINOPHILS # (AUTO) 0.1 K/uL (0.0-0.4); EOSINOPHILS % (AUTO) 1.4 % (0.0-4.0); HEMATOCRIT 43.6 % (36-48); HEMOGLOBIN 14.9 g/dL (12.0-16.0); LYMPHOCYTES # (AUTO) 4.8 K/uL (1.0-5.5); LYMPHOCYTES % (AUTO) 45.4 % (20.5-51.5); MEAN CORPUSCULAR HEMOGLOBIN 31 pg (27-31); MEAN CORPUSCULAR HGB CONC 34 % (32-36); MEAN CORPUSCULAR VOLUME 90 fL (79.0-98.0); MONOCYTES # (AUTO) 0.7 K/uL (0.0-1.0); MONOCYTES % (AUTO) 6.4 % (1.7-9.3); NEUTROPHILS # (AUTO) 4.9 K/uL (1.8-7.7); PLATELET COUNT (AUTO) 242 K/uL (130-430); RED BLOOD CELL COUNT(AUTO) 4.85 MIL/uL (4.2-6.2); RED CELL DISTRIBUTION WIDTH 12.8 % (9.0-15.0); WHITE BLOOD COUNT (AUTO) 10.7 K/uL (4.8-10.8)
[2021-04-18 09:52] LABS: CALCIUM 9.2 mg/dL (8.4-11.0); CREATININE 0.86 mg/dL (0.55-1.30); POTASSIUM 3.8 mmol/L (3.5-5.1)
[2021-04-18 09:57] LABS: ALBUMIN 3.7 g/dL (3.4-4.8); TOTAL BILIRUBIN 0.5 mg/dL (0.0-1.0)
[2021-04-18 10:07] LABS: PROTHROMBIN TIME 9.9 SECS (9.5-12.5)
[2021-04-18 11:10] VITALS: BP_SYST 126
[2021-04-18] MEDS ORDERED: ASPI-1393 PO (14:09)
== END 2021-04-18 10:54 | disposition home or self-care (01) ==
LOC: SED 08:48
DX: I48.91 Unspecified atrial fibrillation (principal); F41.9 Anxiety disorder, unspecified; Z79.899 Other long term (current) drug therapy; Z91.040 Latex allergy status
CPT/HCPCS: 36415; 71045; 80053; 83880; 84484; 85025; 85610; 85730; 93005; 96374; 99285; J3490

== ENCOUNTER 2021-04-18 13:26 | Inpatient (IN) | payer OTHER, SELFPAY ==
[~2021-04-18] VITALS: Ht 165.1 cm; Wt 83.9 kg
[~2021-04-18 13:26] MED LIST changes: +BENI20 IM; +Bentyl PO; +FLUT16SP16 NS
--- NOTE | 2021-04-18 13:28 | NUR ---
Placed in room 08 . Placed on plush dresser, blood pressure machine and pulse oximeter. To gown for exam. Side rails up.
[2021-04-18 13:31] VITALS: BP_SYST 132
--- NOTE | 2021-04-18 13:35 | NUR ---
ER DR. SCHILLING AT THE BEDSIDE EXAMINING PT
[2021-04-18] MEDS ORDERED: DILTIAZEM HCL 60 MG TABLET PO ONE (13:45)
[2021-04-18] MEDS ORDERED: DILTIAZEM HCL 25 MG/5 ML VIAL IVP ONE (13:45)
--- NOTE | 2021-04-18 13:45 | NUR ---
PT CAME IN FROM HOME FOR A SECOND VISIT TODAY STATING SHE FELT LIKE SHE WAS HAVING A-FIB AND CHEST PAIN. PT IS ANXIOUS AND HR 125. SHE IS AMBULATORY, AAOX4, OTHER V/S STABLE.
--- NOTE | 2021-04-18 13:53 | NUR ---
ADMISSION ORDERS RECEIVED FROM DR. PORRAS
[2021-04-18] MEDS ORDERED: ASPI-1393 PO (14:09)
--- NOTE | 2021-04-18 14:09 | NUR ---
Medication reconciliation completed with information provided by PATIENT. Any prior medication reconciliation on file was reviewed and corrected.
--- NOTE | 2021-04-18 14:39 | NUR ---
Patient will be admitted to care of DR. PORRAS. Admitted to TELE unit. Will go to room 102B. Belongings list completed. Complete and up to date summary report printed. SBAR report to be given at bedside with opportunity for questions.
--- NOTE | 2021-04-18 15:05 | NUR ---
ADMISSION NOTE Received patient from ER via gurney. Patient admitted with diagnosis of chest pain, atrial fib. Patient is awake, alert, oriented X . Patient oriented to hospital room, call light, toileting, pain management and safety-teach back done. Patient informed that will be nurse and that their room number is . Personal belongings checked and Belongings List documented. Call light within reach.
[2021-04-18] MEDS ORDERED: ALBUTEROL MDI INHALATION 8 GM INH INH PRN (15:15)
[2021-04-18] MEDS ORDERED: LORATADINE 10 MG TABLET PO PRN (15:15)
[2021-04-18 15:32] VITALS: BP_SYST 131
[2021-04-18 16:01] VITALS: BP_SYST 131
[2021-04-18 16:19] VITALS: BP_SYST 131
[2021-04-18] MEDS ORDERED: VORTIOXETINE HYDROBROMIDE 20 MG PO SCH (18:00)
--- NOTE | 2021-04-18 19:15 | NUR ---
CLOSING NOTES: PATIENT IS AWAKE, ALERT LAYING DOWN IN BED. TOLERATED OXYGEN ON ROOM AIR WITH NO DISTRESS NOTED. IV LINE PATENT AND INTACT WITH NO INFILTRATION NOTED. SAFETY, FALL, AND ASPIRATION PRECAUTIONS REMAINED IN PLACE. BED LOCKED IN LOWEST POSITION AND CALL LIGHT IN REACH. WILL ENDORSE PATIENT CARE TO ONCOMING MARITIME OFFICER NURSE.
--- NOTE | 2021-04-18 19:30 | NUR ---
OPENING NOTE: PATIENT IS AWAKE, ALERT LAYING DOWN IN BED. TOLERATING OXYGEN ON ROOM AIR WITH NO DISTRESS NOTED. IV LINE SALINE LOCKED PATENT AND INTACT WITH NO INFILTRATION NOTED. SAFETY, FALL, AND ASPIRATION PRECAUTIONS IN PLACE. BED LOCKED IN LOWEST POSITION AND CALL LIGHT IN REACH. WILL CONTINUE TO MONITOR.
[2021-04-18 20:00] VITALS: BP_SYST 118
[2021-04-18] MEDS ORDERED: ALBUTEROL SULFATE 0.083% 2.5 MG/3 ML VIAL.NEB INH PRN (20:30)
[2021-04-18 21:00] VITALS: BP_SYST 118
[2021-04-18] MEDS ORDERED: CLONAZEPAM 1 MG PO SCH (21:00)
[2021-04-18] MEDS: busPIRone HCL 5 MG TABLET PO SCH (21:00)
[2021-04-18] MEDS: PANTOPRAZOLE SODIUM 40 MG TAB PO SCH (21:00)
[2021-04-18] MEDS: HYDROCHLOROTHIAZIDE 25 MG TABLET (HCTZ) PO SCH (21:00)
--- NOTE | 2021-04-18 21:20 | NUR ---
RN ROUNDS PT VITAL SIGNS STABLE. PT TOLERATED MEDICATIONS. NO S/S OF DISTRESS.
[2021-04-18] MEDS: CALCIUM CARBONATE/VITAMIN D3 1 TAB TABLET PO SCH (21:23)
[2021-04-18] MEDS: ACETAMINOPHEN 500 MG TABLET PO SCH (21:23)
[2021-04-18] MEDS: clonazePAM 0.5 MG TABLET PO SCH (21:24)
--- NOTE | 2021-04-18 22:00 | NUR ---
SPOKE TO DR QUESADA ON-CALL REGARDING PT REQUEST FOR CPAP AT NIGHT. RCVD ORDERS. ALSO MADE HER AWARE PT HAS CHANGES TO HER MEDICATIONS, DR QUESADA STATED THAT PRIMARY DR WILL NEED TO ADJUST THEM.
--- NOTE | 2021-04-19 | NUR ---
RN ROUNDS PT VITAL SIGNS STABLE. PT IS ANXIOUS, BUT SHE STATES SHE IS BASELINE THAT WAY. PT IS A-FIB ON THE MONITOR. WILL CONTINUE TO MONITOR.
[2021-04-19 00:40] VITALS: BP_SYST 137
[2021-04-19] MEDS: busPIRone HCL 5 MG TABLET PO SCH ×3 (01:03→17:12)
[2021-04-19] MEDS ORDERED: CALCIUM CARBONATE/MAG HYDROX 1 TAB.CHEW PO ONE (02:00)
[2021-04-19] MEDS ORDERED: MAG-AL HYDROX/SIMETH 30 ML UDC PO ONE (02:00)
--- NOTE | 2021-04-19 02:00 | NUR ---
SPOKE TO DR QUESADA REGARDING PT REQUESTING ANTACID. RCVD NEW ORDER. WILL CARRY OUT
--- NOTE | 2021-04-19 06:12 | NUR ---
CLOSING NOTE: PATIENT IS AWAKE, ALERT LAYING DOWN IN BED. USING CPAP FOR SLEEP. IV LINE SALINE LOCKED PATENT AND INTACT WITH NO INFILTRATION NOTED. SAFETY, FALL, AND ASPIRATION PRECAUTIONS IN PLACE. BED LOCKED IN LOWEST POSITION AND CALL LIGHT IN REACH. WILL CONTINUE TO MONITOR UNTIL CARE ENDORSED TO DAYSHIFT RN.
[2021-04-19 07:59] VITALS: BP_SYST 133
[2021-04-19] MEDS: ASPIRIN 81 MG TABLET(ECOTRIN) PO SCH (08:29)
[2021-04-19] MEDS: ACETAMINOPHEN 500 MG TABLET PO SCH ×3 (08:29→21:48)
[2021-04-19] MEDS: buPROPion HCL 150 MG XL TAB PO SCH (08:29)
[2021-04-19] MEDS: DICYCLOMINE HCL 10 MG CAPSULE PO SCH ×3 (08:30→21:43)
[2021-04-19] MEDS: clonazePAM 0.5 MG TABLET PO SCH ×3 (08:30→21:41)
[2021-04-19] MEDS: MULTIVITAMINS TAB 1 TABLET PO SCH (08:31)
[2021-04-19] MEDS: CALCIUM CARBONATE/VITAMIN D3 1 TAB TABLET PO SCH ×4 (08:31→21:42)
[2021-04-19] MEDS: ATORVASTATIN 10 MG TABLET PO SCH (08:31)
[2021-04-19] MEDS: PANTOPRAZOLE SODIUM 40 MG TAB PO SCH ×2 (08:32→21:00)
[2021-04-19] MEDS: DILTIAZEM HCL 120 MG CAP.SR.24H PO SCH (08:32)
[2021-04-19] MEDS: HYDROCHLOROTHIAZIDE 25 MG TABLET (HCTZ) PO SCH ×2 (08:32→21:00)
[2021-04-19] MEDS: FLUTICASONE PROPIONATE 50 mCg/SPRAY 16 GM NS SCH (08:33)
[2021-04-19] MEDS ORDERED: BACLOFEN 10 MG PO SCH (09:00)
[2021-04-19] MEDS ORDERED: ATORVASTATIN 10 MG TABLET PO SCH (09:00)
[2021-04-19] MEDS ORDERED: METOPROLOL TARTRATE 25 MG TABLET PO SCH (09:00)
[2021-04-19] MEDS ORDERED: BUPROPION HCL 450 MG PO SCH (09:00)
--- NOTE | 2021-04-19 09:21 | NUR ---
CONSULTATION: REASON FOR CONSULT: CHEST PAIN CONSULTING PHYSICIAN: JUAN ORDERED BY: VERN MARTINEZ IS AWARE OF CONSULT AND IS ALREADY IN HOSPITAL
[2021-04-19 09:27] LABS: BASOPHILS % (AUTO) 0.4 % (0.0-2.0); EOSINOPHILS # (AUTO) 0.2 K/uL (0.0-0.4); EOSINOPHILS % (AUTO) 1.6 % (0.0-4.0); HEMATOCRIT 44.3 % (36-48); LYMPHOCYTES # (AUTO) 5.2 K/uL (1.0-5.5); LYMPHOCYTES % (AUTO) 48.2 % (20.5-51.5); MEAN CORPUSCULAR HEMOGLOBIN 31 pg (27-31); MEAN CORPUSCULAR HGB CONC 34 % (32-36); MEAN CORPUSCULAR VOLUME 91 fL (79.0-98.0); MONOCYTES # (AUTO) 0.5 K/uL (0.0-1.0); MONOCYTES % (AUTO) 4.3 % (1.7-9.3); NEUTROPHILS # (AUTO) 4.9 K/uL (1.8-7.7); PLATELET COUNT (AUTO) 224 K/uL (130-430); RED BLOOD CELL COUNT(AUTO) 4.89 MIL/uL (4.2-6.2); WHITE BLOOD COUNT (AUTO) 10.9 K/uL (4.8-10.8)
[2021-04-19 09:29] LABS: ANION GAP 8 (5-15); CALCIUM 8.7 mg/dL (8.4-11.0); CHLORIDE 98 mmol/L (98-107); CREATININE 0.84 mg/dL (0.55-1.30); GLUCOSE 186 mg/dL (70-99); POTASSIUM 3.2 mmol/L (3.5-5.1); SODIUM SERUM 132 mmol/L (136-145); UREA NITROGEN, BLOOD 11 mg/dL (8-21)
[2021-04-19] MEDS ORDERED: AMIODARONE HCL 200 MG TABLET PO ONE (09:30)
[2021-04-19 09:32] LABS: NEUTROPHILS % (AUTO) 45.5 % (40.0-70.0)
[2021-04-19 09:33] LABS: GFR AFRICAN AMERICAN 88 mL/min (>90)
[2021-04-19 09:43] LABS: ALANINE AMINOTRANSFERASE 53 U/L (12-78); ALBUMIN 3.5 g/dL (3.4-4.8); ASPARTATE AMINOTRANSFERASE 30 U/L (10-37); THYROID STIMULATING HORMONE 2.19 uIu/mL (0.36-3.74); TOTAL BILIRUBIN 0.3 mg/dL (0.0-1.0)
[2021-04-19] MEDS: POTASSIUM CHLORIDE 20 MEQ TAB.PRT.SR PO SCH ×2 (10:30→15:05)
[2021-04-19 12:00] VITALS: BP_SYST 107
[2021-04-19] MEDS: AMIODARONE HCL 200 MG TABLET PO SCH ×2 (15:05→21:46)
[2021-04-19] MEDS ORDERED: AMIODARONE HCL 200 MG TABLET ONE (15:06)
[2021-04-19 16:00] VITALS: BP_SYST 110
--- NOTE | 2021-04-19 19:00 | NUR ---
Note Pt was sleeping most of shift, pt stated she did not get much sleep last night. Pt was checked on q1' and PRN all shift for needs and care all shift. Bed in low position and bed alarm on all shift. Call light within reach. Tele unit attached and intact all shift. IV in RAC intact and patent.
--- NOTE | 2021-04-19 19:30 | NUR ---
OPENING NOTES: Patient is resting in bed, alert and oriented with no s/s of distress or discomfort. Ensured all safety precautions, bed is locked and in the lowest position. Call light within reach.
[2021-04-19 20:00] VITALS: BP_SYST 126
[2021-04-19] MEDS: BACLOFEN 10 MG TABLET PO SCH (21:46)
[2021-04-20] VITALS: BP_SYST 137
[2021-04-20] MEDS: busPIRone HCL 5 MG TABLET PO SCH ×2 (00:12→11:06)
[2021-04-20] MEDS: AMIODARONE HCL 200 MG TABLET PO SCH (06:07)
--- NOTE | 2021-04-20 06:59 | NUR ---
CLOSING NOTES: Patient is laying in bed, alert and oriented with no s/s of distress or discomfort. She is in stable condition. All needs were met throughout shift. Will endorse to dayshift nurse.
--- NOTE | 2021-04-20 08:00 | NUR ---
A/OX4. RA, SR ON MONITOR.. IV LINE SALINE LOCKED PATENT AND INTACT WITH NO INFILTRATION NOTED. POC IS EXPLAINED. CALL LIGHT IN PLACE, BED LOCKED AT THE LOWEST POSITION, WILL CONTINUE TO MONITOR.
[2021-04-20] MEDS: BACLOFEN 10 MG TABLET PO SCH (08:37)
[2021-04-20] MEDS: clonazePAM 0.5 MG TABLET PO SCH (08:37)
[2021-04-20] MEDS: ASPIRIN 81 MG TABLET(ECOTRIN) PO SCH (08:37)
[2021-04-20] MEDS: ATORVASTATIN 10 MG TABLET PO SCH (08:38)
[2021-04-20] MEDS: buPROPion HCL 150 MG XL TAB PO SCH (08:38)
[2021-04-20] MEDS: MULTIVITAMINS TAB 1 TABLET PO SCH (08:39)
[2021-04-20] MEDS: CALCIUM CARBONATE/VITAMIN D3 1 TAB TABLET PO SCH (08:39)
[2021-04-20] MEDS: ACETAMINOPHEN 500 MG TABLET PO SCH (08:39)
[2021-04-20] MEDS: DICYCLOMINE HCL 10 MG CAPSULE PO SCH (08:39)
[2021-04-20] MEDS: PANTOPRAZOLE SODIUM 40 MG TAB PO SCH (08:40)
[2021-04-20] MEDS: DILTIAZEM HCL 120 MG CAP.SR.24H PO SCH (08:46)
[2021-04-20] MEDS: HYDROCHLOROTHIAZIDE 25 MG TABLET (HCTZ) PO SCH (08:46)
[2021-04-20] MEDS: FLUTICASONE PROPIONATE 50 mCg/SPRAY 16 GM NS SCH (08:49)
--- NOTE | 2021-04-20 10:58 | NUR ---
Nutrition Note Pt was screened at high nutritional risk d/t RD Notification received 04/18/21 1600 for unspecified nutritional problem. RD reviewed physician's Progress Note 04/20 and noted plans for D/C home. 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 RD acknowledged and pt appreciative.
[2021-04-20 11:19] VITALS: BP_SYST 155
[2021-04-20 11:21] VITALS: BP_SYST 138
--- NOTE | 2021-04-20 12:00 | NUR ---
D/C Patient Patient given medication reconciliation form and D/C instructions. Exit Care provided. Patient verbalized understanding. MD discussed with patient the results and treatment provided. Ambulatory with steady gait for discharge to home. Patient in stable condition, ID band removed. IV catheter removed, intact and dressing applied, no active bleeding. Rx of AMIODARONE, TOPROL, ELIQUIS, AND HCTZ given. Patient educated on pain management. All belongings sent with patient.
== END 2021-04-20 12:00 | disposition home or self-care (01) | DRG 309 ==
LOC: SED 13:26 → STU 13:53
PROVIDERS: ADMIT Internal Medicine Hospice and Palliative Medicine; ATTEND Internal Medicine Hospice and Palliative Medicine
PROC: 5A09357 Assistance with Respiratory Ventilation, Less than 24 Consecutive Hours, Continuous Positive Airway Pressure (ICD-10-PCS; principal; 2021-04-18)
DX: I48.0 Paroxysmal atrial fibrillation (principal); E87.1 Hypo-osmolality and hyponatremia; E66.01 Morbid (severe) obesity due to excess calories; F41.9 Anxiety disorder, unspecified; F32.9 Major depressive disorder, single episode, unspecified; E87.6 Hypokalemia; I10 Essential (primary) hypertension; G47.33 Obstructive sleep apnea (adult) (pediatric); Z20.822 Contact with and (suspected) exposure to COVID-19; M19.90 Unspecified osteoarthritis, unspecified site; G89.29 Other chronic pain; Z88.7 Allergy status to serum and vaccine; Z91.040 Latex allergy status; Z79.1 Long term (current) use of non-steroidal anti-inflammatories (NSAID); Z79.899 Other long term (current) drug therapy; Z79.82 Long term (current) use of aspirin; Z90.710 Acquired absence of both cervix and uterus; Z98.84 Bariatric surgery status
CPT/HCPCS: 36415; 80053; 84443; 84484; 85025; 93005; 94660; 96374; 99285; G0378; J3490

== ENCOUNTER 2021-04-27 09:36 | Emergency (ER) | payer OTHER, SELFPAY ==
[~2021-04-27] VITALS: Ht 162.6 cm; Wt 62.6 kg
[~2021-04-27 09:36] MED LIST changes: -BENTYL PO; -DILT120C89 PO; -HYDR25TA4 PO; -METO25TA6 PO
--- NOTE | 2021-04-27 09:40 | NUR ---
Placed in room 5 . Placed on outside repairer special, blood pressure machine and pulse oximeter. To gown for exam. Side rails up.
--- NOTE | 2021-04-27 09:45 | NUR ---
Pt walked in with c/o a-fib, states she felt herself going in and out of the rhythm at home and needed to come in. Pt was recently hospitalized for a-fib and is scheduled for ablation next month. V/S stable, no acute distress noted.
--- NOTE | 2021-04-27 09:53 | NUR ---
ER Dr. Dye at bedside examining patient.
[2021-04-27 10:02] VITALS: BP_SYST 151
--- NOTE | 2021-04-27 10:19 | NUR ---
Lab at bedside for blood draw.
[2021-04-27 10:38] LABS: BASOPHILS % (AUTO) 0.5 % (0.0-2.0); EOSINOPHILS # (AUTO) 0.2 K/uL (0.0-0.4); EOSINOPHILS % (AUTO) 2.4 % (0.0-4.0); HEMATOCRIT 41.3 % (36-48); HEMOGLOBIN 13.6 g/dL (12.0-16.0); LYMPHOCYTES % (AUTO) 44.1 % (20.5-51.5); MEAN CORPUSCULAR HEMOGLOBIN 30 pg (27-31); MEAN CORPUSCULAR HGB CONC 33 % (32-36); MEAN CORPUSCULAR VOLUME 92 fL (79.0-98.0); MONOCYTES # (AUTO) 0.6 K/uL (0.0-1.0); MONOCYTES % (AUTO) 6.1 % (1.7-9.3); NEUTROPHILS # (AUTO) 4.2 K/uL (1.8-7.7); NEUTROPHILS % (AUTO) 46.9 % (40.0-70.0); PLATELET COUNT (AUTO) 224 K/uL (130-430); RED BLOOD CELL COUNT(AUTO) 4.51 MIL/uL (4.2-6.2); RED CELL DISTRIBUTION WIDTH 13.3 % (9.0-15.0)
[2021-04-27 10:44] LABS: CALCIUM 9.3 mg/dL (8.4-11.0); CREATININE 0.79 mg/dL (0.55-1.30)
[2021-04-27 10:48] LABS: PROTHROMBIN TIME 10.5 SECS (9.5-12.5)
[2021-04-27 10:50] LABS: ALBUMIN 3.4 g/dL (3.4-4.8); TOTAL BILIRUBIN 0.3 mg/dL (0.0-1.0)
[2021-04-27 11:18] VITALS: BP_SYST 151
--- NOTE | 2021-04-27 11:19 | NUR ---
Patient given written and verbal discharge instructions and verbalizes understanding. ER MD discussed with patient the results and treatment provided. Patient in stable condition. ID arm band removed. No prescriptions given. Patient educated on pain management and to follow up with PMD. Pain Scale 0. Opportunity for questions provided and answered. Medication side effect fact sheet provided.
== END 2021-04-27 09:40 | disposition home or self-care (01) ==
LOC: SED 09:36
DX: R00.2 Palpitations (principal); I48.91 Unspecified atrial fibrillation; Z79.899 Other long term (current) drug therapy; Z91.040 Latex allergy status
CPT/HCPCS: 36415; 71045; 80053; 83880; 84484; 85025; 85610-TC; 85730-TC; 93005; 99285

== ENCOUNTER 2021-04-29 00:24 | Observation (INO) | payer OTHER, SELFPAY ==
[~2021-04-29] VITALS: Ht 157.5 cm; Wt 860.0 kg
[2021-04-29 00:35] VITALS: BP_SYST 161
--- NOTE | 2021-04-29 00:54 | NUR ---
PATIENT AAOX4 AND AMBULATORY C/O RACING FAST HEART WHILE RESTING IN BED. PATIENT STATED SHE WAS RECENTLY HOSPITALIZED FOR HER A-FIB. PATIENT DIAPHORETIC AND WARM. DENIES ANY PAIN AT THIS TIME. NO N/V/D. DENIES SOB. MEDICAL HISTORY OF ASTHMA, JANENE, A-FIB, MAJOR DEPRESSION, ANXIETY.
--- NOTE | 2021-04-29 00:54 | NUR ---
Placed in room 8. Placed on surveillance monitor, blood pressure machine and pulse oximeter. To gown for exam. Side rails up. Report given to Ade.
--- NOTE | 2021-04-29 00:55 | NUR ---
DR. RODRÍGUEZ AT BEDSIDE FOR PATIENT EVALUATION.
[2021-04-29] MEDS ORDERED: DILTIAZEM HCL 25 MG/5 ML VIAL IVP ONE (01:00)
--- NOTE | 2021-04-29 01:00 | NUR ---
# 20 gauge angiocath placed to RAC. Use of asceptic technique. Opsite placed over site. Blood return noted. Blood for lab drawn from site. Flushed with 10 cc of normal saline. No evidence of infiltration noted. Patient tolerated well.
--- NOTE | 2021-04-29 01:10 | NUR ---
PORTABLE XRAY AT BEDSIDE DONE.
[2021-04-29 01:19] LABS: CREATININE 0.98 mg/dL (0.55-1.30); POTASSIUM 4.2 mmol/L (3.5-5.1)
[2021-04-29] MEDS ORDERED: DILTIAZEM HCL 25 MG/5 ML VIAL ONE (01:20)
[2021-04-29 01:23] LABS: PROTHROMBIN TIME 10.2 SECS (9.5-12.5)
[2021-04-29 01:26] LABS: BASOPHILS % (AUTO) 0.4 % (0.0-2.0); EOSINOPHILS # (AUTO) 0.1 K/uL (0.0-0.4); EOSINOPHILS % (AUTO) 1.2 % (0.0-4.0); HEMATOCRIT 42.3 % (36-48); HEMOGLOBIN 14.2 g/dL (12.0-16.0); LYMPHOCYTES # (AUTO) 3.9 K/uL (1.0-5.5); LYMPHOCYTES % (AUTO) 35.7 % (20.5-51.5); MEAN CORPUSCULAR HEMOGLOBIN 31 pg (27-31); MEAN CORPUSCULAR HGB CONC 34 % (32-36); MEAN CORPUSCULAR VOLUME 92 fL (79.0-98.0); MONOCYTES # (AUTO) 0.7 K/uL (0.0-1.0); MONOCYTES % (AUTO) 6.7 % (1.7-9.3); NEUTROPHILS # (AUTO) 6.2 K/uL (1.8-7.7); PLATELET COUNT (AUTO) 232 K/uL (130-430); RED BLOOD CELL COUNT(AUTO) 4.59 MIL/uL (4.2-6.2); RED CELL DISTRIBUTION WIDTH 13.7 % (9.0-15.0); WHITE BLOOD COUNT (AUTO) 11.1 K/uL (4.8-10.8)
[2021-04-29 01:33] LABS: THYROID STIMULATING HORMONE 3.27 uIu/mL (0.36-3.74); TOTAL BILIRUBIN 0.4 mg/dL (0.0-1.0)
[2021-04-29] MEDS ORDERED: APIX5TAB4 PO ×2 (02:00→08:35)
--- NOTE | 2021-04-29 02:00 | NUR ---
Medication reconciliation completed with information provided by PATIENT. Any prior medication reconciliation on file was reviewed and corrected.
--- NOTE | 2021-04-29 02:33 | NUR ---
Patient's code status is FULL CODE paperwork completed and placed in chart.
--- NOTE | 2021-04-29 02:33 | NUR ---
COVID SWAB COLLECTED AND SENT TO LAB FOR ANALYSIS.
--- NOTE | 2021-04-29 02:45 | NUR ---
BELONGINGS DONE AT BEDSIDE WITH PATIENT.
[2021-04-29] MEDS ORDERED: POTASSIUM CHLORIDE 20 MEQ TAB.PRT.SR PO ONE (03:30)
[2021-04-29] MEDS ORDERED: MAGNESIUM SULFATE 50 ML IV ONE (03:30)
[2021-04-29] MEDS ORDERED: LORazepam 2 MG/ML VIAL IVP ONE (03:45)
--- NOTE | 2021-04-29 04:13 | NUR ---
Patient resting quietly. No acute distress noted. Vital signs within normal range.
--- NOTE | 2021-04-29 04:56 | NUR ---
REPORT GIVEN TO LIZ KRUEGER WHO WILL ASSUME CARE OF PATIENT.
--- NOTE | 2021-04-29 05:01 | NUR ---
To restroom ambulatory, voided freely as claimed
--- NOTE | 2021-04-29 05:22 | NUR ---
Apparentl asking for snacks, jello, vanilla pudding, 2 crackers and water served.
[2021-04-29] MEDS ORDERED: NALOXONE HCL 0.4 MG/ML AMP (NARCAN) IVP PRN (05:30)
[2021-04-29] MEDS ORDERED: ACETAMINOPHEN 325 MG TABLET PO PRN (05:30)
[2021-04-29] MEDS ORDERED: MORPHINE 4 MG INJ. 4 MG/ML VIAL IVP PRN (05:30)
[2021-04-29] MEDS ORDERED: HYDROcodone/ACETAMIN 5-325 MG TAB (NORCO/ VICODIN) PO PRN (05:30)
[2021-04-29] MEDS ORDERED: ALBUTEROL SULFATE 0.083% 2.5 MG/3 ML VIAL.NEB INH PRN (05:30)
[2021-04-29 05:37] VITALS: BP_SYST 149
[2021-04-29] MEDS ORDERED: LORATADINE 10 MG TABLET PO PRN (05:45)
--- NOTE | 2021-04-29 07:05 | NUR ---
Endorsed to day shift LIZ Medley for continuity of care in stable condition.
--- NOTE | 2021-04-29 07:45 | NUR ---
[facility] Admitted to tele unit. Will go to room 106-b. Belongings list completed. Complete and up to date summary report printed. SBAR report to be given at bedside with opportunity for questions.
--- NOTE | 2021-04-29 07:57 | NUR ---
CONSULTATION PAGED REASON FOR CONSULTATION:A-FIB WAS CONSULT CALED?Y PERSON WHO WAS NOTIFIED:[facility] CONSULTING PHYSICIAN:CHARITY NELSON [employer] EVALUATED NURSE AIDE SPECIALTY:CARDIO COMPETENCY EVALUATED NURSE AIDE PHONE NUMBER:[phone] REQUESTING PHYSICIAN:AUGUSTINE SAWYER
[2021-04-29 08:05] VITALS: BP_SYST 110
[2021-04-29 08:06] VITALS: BP_SYST 110
[2021-04-29 08:19] LABS: BASOPHILS # (AUTO) 0.1 K/uL (0.0-0.2); BASOPHILS % (AUTO) 0.8 % (0.0-2.0); EOSINOPHILS # (AUTO) 0.2 K/uL (0.0-0.4); EOSINOPHILS % (AUTO) 1.4 % (0.0-4.0); HEMOGLOBIN 14.4 g/dL (12.0-16.0); LYMPHOCYTES # (AUTO) 4.5 K/uL (1.0-5.5); LYMPHOCYTES % (AUTO) 39.2 % (20.5-51.5); MEAN CORPUSCULAR HEMOGLOBIN 31 pg (27-31); MEAN CORPUSCULAR HGB CONC 34 % (32-36); MEAN CORPUSCULAR VOLUME 91 fL (79.0-98.0); MONOCYTES # (AUTO) 0.7 K/uL (0.0-1.0); MONOCYTES % (AUTO) 6.4 % (1.7-9.3); NEUTROPHILS % (AUTO) 52.2 % (40.0-70.0); PLATELET COUNT (AUTO) 240 K/uL (130-430); RED BLOOD CELL COUNT(AUTO) 4.73 MIL/uL (4.2-6.2); RED CELL DISTRIBUTION WIDTH 13.5 % (9.0-15.0); WHITE BLOOD COUNT (AUTO) 11.4 K/uL (4.8-10.8)
--- NOTE | 2021-04-29 08:50 | NUR ---
PATIENT RECEIVED Patient received from ER nurse, in stable condition, IV is in place and patient . No signs or symptoms of respiratory distress. Patient is anxious, does not complain of pain or discomfort. Educated patient on plan of care, call light system and oriented to room. Bed is in lowest position, call light wihtin reach. Fall and aspiration precautions are in place. Will continue to monitor.
[2021-04-29 09:00] LABS: ALANINE AMINOTRANSFERASE 39 U/L (12-78); ALBUMIN 3.8 g/dL (3.4-4.8); ANION GAP 10 (5-15); ASPARTATE AMINOTRANSFERASE 21 U/L (10-37); CALCIUM 8.8 mg/dL (8.4-11.0); CHLORIDE 105 mmol/L (98-107); CREATININE 0.77 mg/dL (0.55-1.30); GLUCOSE 88 mg/dL (70-99); SODIUM SERUM 143 mmol/L (136-145); THYROID STIMULATING HORMONE 5.52 uIu/mL (0.36-3.74); TOTAL BILIRUBIN 0.3 mg/dL (0.0-1.0); UREA NITROGEN, BLOOD 17 mg/dL (8-21)
[2021-04-29] MEDS ORDERED: busPIRone HCL 5 MG TABLET PO SCH (09:00)
[2021-04-29] MEDS ORDERED: FLUTICASONE PROPIONATE 50 mCg/SPRAY 16 GM NS SCH (09:00)
[2021-04-29] MEDS ORDERED: METOPROLOL SUCCINATE 25 MG TAB.SR.24H (TOPROL XL) PO ONE (09:00)
[2021-04-29] MEDS ORDERED: APIXABAN 2.5 MG TABLET PO SCH (09:00)
[2021-04-29] MEDS ORDERED: ATORVASTATIN 10 MG TABLET PO SCH ×2 (09:00)
[2021-04-29] MEDS ORDERED: PANTOPRAZOLE SODIUM 40 MG TAB PO SCH (09:00)
[2021-04-29] MEDS ORDERED: AMIODARONE HCL 200 MG TABLET PO ONE (09:00)
[2021-04-29 09:29] LABS: GFR AFRICAN AMERICAN 98 mL/min (>90)
[2021-04-29] MEDS ORDERED: AMIO100T4 PO (09:57)
[2021-04-29] MEDS ORDERED: METO25TA3 PO (09:57)
[2021-04-29] MEDS ORDERED: HYDR25TA4 PO (09:57)
[2021-04-29 10:33] VITALS: BP_SYST 110
[2021-04-29 11:31] VITALS: BP_SYST 120
[2021-04-29] MEDS ORDERED: AMIO200T66 PO (11:35)
[2021-04-29] MEDS ORDERED: AMIODARONE HCL 200 MG TABLET PO SCH (21:00)
[2021-04-30] MEDS ORDERED: METOPROLOL SUCCINATE 25 MG TAB.SR.24H (TOPROL XL) PO SCH (09:00)
== END 2021-04-29 14:10 | disposition home or self-care (01) ==
LOC: SED 00:24 → STU 04:38 → INTOOBSV 04:38 → STU 06:18
PROVIDERS: ADMIT Internal Medicine Hospice and Palliative Medicine; ATTEND Internal Medicine Hospice and Palliative Medicine
DX: I48.20 Chronic atrial fibrillation, unspecified (principal); Z20.822 Contact with and (suspected) exposure to COVID-19; I48.0 Paroxysmal atrial fibrillation; I10 Essential (primary) hypertension; E78.5 Hyperlipidemia, unspecified; F41.0 Panic disorder [episodic paroxysmal anxiety]; F32.9 Major depressive disorder, single episode, unspecified; Z79.01 Long term (current) use of anticoagulants; Z79.899 Other long term (current) drug therapy; Z91.040 Latex allergy status
CPT/HCPCS: 36415; 71045; 80053; 83880; 84443; 84484; 85025; 85610; 85730; 87426; 93005; 96365; 96375; 99285; G0378; J2060; J3475; J3490

== ENCOUNTER 2021-04-30 07:55 | Emergency (ER) | payer OTHER, SELFPAY ==
[~2021-04-30] VITALS: Ht 165.1 cm; Wt 83.9 kg
[~2021-04-30 07:55] MED LIST changes: +AMIO100T4 PO; +AMIO200T66 PO; +APIX5TAB4 PO; +HYDR25TA4 PO; +METO25TA3 PO
[2021-04-30 08:05] VITALS: BP_SYST 153
--- NOTE | 2021-04-30 08:05 | NUR ---
Patient to ER bed 3 to gown for evaluation. Side rails up. Report given to S[place]SY [place].
--- NOTE | 2021-04-30 08:10 | NUR ---
Pt came to ER stating "I am having an a fib attack". Pt appears very anxious has been recently admitted to the hospital for afib and seen her manager product design for follow up appointment where she was told her medications are effective in controlling afib. Pt in sinus rhythm on monitor no signs of afib noted.
--- NOTE | 2021-04-30 08:15 | NUR ---
ER at bedside examining patient.
[2021-04-30 08:50] LABS: BASOPHILS % (AUTO) 0.4 % (0.0-2.0); EOSINOPHILS # (AUTO) 0.2 K/uL (0.0-0.4); EOSINOPHILS % (AUTO) 1.6 % (0.0-4.0); HEMATOCRIT 41.9 % (36-48); HEMOGLOBIN 13.9 g/dL (12.0-16.0); LYMPHOCYTES # (AUTO) 4.5 K/uL (1.0-5.5); LYMPHOCYTES % (AUTO) 44.4 % (20.5-51.5); MEAN CORPUSCULAR HEMOGLOBIN 31 pg (27-31); MEAN CORPUSCULAR HGB CONC 33 % (32-36); MEAN CORPUSCULAR VOLUME 92 fL (79.0-98.0); MONOCYTES # (AUTO) 0.5 K/uL (0.0-1.0); MONOCYTES % (AUTO) 4.7 % (1.7-9.3); NEUTROPHILS # (AUTO) 4.9 K/uL (1.8-7.7); NEUTROPHILS % (AUTO) 48.9 % (40.0-70.0); PLATELET COUNT (AUTO) 218 K/uL (130-430); RED BLOOD CELL COUNT(AUTO) 4.57 MIL/uL (4.2-6.2); RED CELL DISTRIBUTION WIDTH 13.5 % (9.0-15.0); WHITE BLOOD COUNT (AUTO) 10.1 K/uL (4.8-10.8)
[2021-04-30 08:56] LABS: CALCIUM 9.1 mg/dL (8.4-11.0); CREATININE 0.8 mg/dL (0.55-1.30)
[2021-04-30 09:08] LABS: ALBUMIN 3.4 g/dL (3.4-4.8); TOTAL BILIRUBIN 0.5 mg/dL (0.0-1.0)
[2021-04-30 09:25] VITALS: BP_SYST 153
--- NOTE | 2021-04-30 09:25 | NUR ---
Patient given written and verbal discharge instructions and verbalizes understanding. ER MD discussed with patient the results and treatment provided. Patient in stable condition. ID arm band removed. No Rx given. Patient educated on pain management and to follow up with PMD. Pain Scale 0/10. Opportunity for questions provided and answered. Medication side effect fact sheet provided.
== END 2021-04-30 09:25 | disposition home or self-care (01) ==
LOC: SED 07:55
DX: R00.2 Palpitations (principal); I48.91 Unspecified atrial fibrillation; F41.9 Anxiety disorder, unspecified; Z91.040 Latex allergy status; Z79.899 Other long term (current) drug therapy
CPT/HCPCS: 36415; 80053; 85025; 93005; 99284

== ENCOUNTER 2021-05-02 03:04 | Emergency (ER) | payer OTHER ==
[~2021-05-02] VITALS: Ht 165.1 cm; Wt 83.9 kg
[~2021-05-02 03:04] MED LIST changes: -AMIO100T4 PO; -BENI20 IM
[2021-05-02 03:08] VITALS: BP_SYST 176
[2021-05-02 04:25] LABS: BASOPHILS # (AUTO) 0.3 K/uL (0.0-0.2); BASOPHILS % (AUTO) 2.9 % (0.0-2.0); EOSINOPHILS # (AUTO) 0.1 K/uL (0.0-0.4); EOSINOPHILS % (AUTO) 1.3 % (0.0-4.0); HEMATOCRIT 42.4 % (36-48); HEMOGLOBIN 14.4 g/dL (12.0-16.0); LYMPHOCYTES % (AUTO) 30.8 % (20.5-51.5); MEAN CORPUSCULAR HEMOGLOBIN 31 pg (27-31); MEAN CORPUSCULAR HGB CONC 34 % (32-36); MEAN CORPUSCULAR VOLUME 91 fL (79.0-98.0); MONOCYTES # (AUTO) 0.5 K/uL (0.0-1.0); MONOCYTES % (AUTO) 4.8 % (1.7-9.3); NEUTROPHILS # (AUTO) 5.9 K/uL (1.8-7.7); NEUTROPHILS % (AUTO) 60.2 % (40.0-70.0); PLATELET COUNT (AUTO) 233 K/uL (130-430); RED BLOOD CELL COUNT(AUTO) 4.69 MIL/uL (4.2-6.2); RED CELL DISTRIBUTION WIDTH 13.2 % (9.0-15.0); WHITE BLOOD COUNT (AUTO) 9.8 K/uL (4.8-10.8)
[2021-05-02 04:29] LABS: CALCIUM 9.3 mg/dL (8.4-11.0); CREATININE 0.77 mg/dL (0.55-1.30); POTASSIUM 4.2 mmol/L (3.5-5.1)
[2021-05-02 04:33] LABS: PROTHROMBIN TIME 10.6 SECS (9.5-12.5)
[2021-05-02 04:34] LABS: TOTAL BILIRUBIN 0.5 mg/dL (0.0-1.0)
[2021-05-02 05:25] VITALS: BP_SYST 130
== END 2021-05-02 05:27 | disposition home or self-care (01) ==
LOC: SED 03:04
DX: R06.02 Shortness of breath (principal); I48.91 Unspecified atrial fibrillation; I10 Essential (primary) hypertension; F41.9 Anxiety disorder, unspecified; F32.9 Major depressive disorder, single episode, unspecified; Z79.899 Other long term (current) drug therapy
CPT/HCPCS: 36415; 71045; 80053; 83880; 84484; 85025; 85610-TC; 85730-TC; 93005; 99285

== ENCOUNTER 2021-05-04 05:02 | Observation (INO) | payer OTHER ==
[~2021-05-04] VITALS: Ht 152.4 cm; Wt 83.9 kg
[2021-05-04 05:02] VITALS: BP_SYST 144
[2021-05-04] MEDS ORDERED: DILTIAZEM HCL 60 MG TABLET PO ONE (06:45)
[2021-05-04] MEDS ORDERED: DILTIAZEM HCL 25 MG/5 ML VIAL IVP ONE (06:45)
[2021-05-04 06:51] LABS: BASOPHILS # (AUTO) 0.1 K/uL (0.0-0.2); BASOPHILS % (AUTO) 0.5 % (0.0-2.0); EOSINOPHILS # (AUTO) 0.2 K/uL (0.0-0.4); EOSINOPHILS % (AUTO) 1.7 % (0.0-4.0); HEMATOCRIT 41.6 % (36-48); HEMOGLOBIN 14.2 g/dL (12.0-16.0); LYMPHOCYTES # (AUTO) 3.9 K/uL (1.0-5.5); LYMPHOCYTES % (AUTO) 39.3 % (20.5-51.5); MEAN CORPUSCULAR HEMOGLOBIN 31 pg (27-31); MEAN CORPUSCULAR HGB CONC 34 % (32-36); MEAN CORPUSCULAR VOLUME 91 fL (79.0-98.0); MONOCYTES # (AUTO) 0.6 K/uL (0.0-1.0); MONOCYTES % (AUTO) 5.8 % (1.7-9.3); NEUTROPHILS # (AUTO) 5.2 K/uL (1.8-7.7); NEUTROPHILS % (AUTO) 52.7 % (40.0-70.0); PLATELET COUNT (AUTO) 222 K/uL (130-430); RED BLOOD CELL COUNT(AUTO) 4.59 MIL/uL (4.2-6.2); RED CELL DISTRIBUTION WIDTH 13.5 % (9.0-15.0); WHITE BLOOD COUNT (AUTO) 9.9 K/uL (4.8-10.8)
[2021-05-04 07:40] LABS: ANION GAP 8 (5-15); CALCIUM 8.6 mg/dL (8.4-11.0); CHLORIDE 103 mmol/L (98-107); GLUCOSE 89 mg/dL (70-99); POTASSIUM 3.8 mmol/L (3.5-5.1); SODIUM SERUM 140 mmol/L (136-145); UREA NITROGEN, BLOOD 14 mg/dL (8-21)
[2021-05-04 07:45] LABS: GFR AFRICAN AMERICAN 93 mL/min (>90)
[2021-05-04 07:54] LABS: ALANINE AMINOTRANSFERASE 29 U/L (12-78); ALBUMIN 3.6 g/dL (3.4-4.8); ASPARTATE AMINOTRANSFERASE 19 U/L (10-37); PHOSPHORUS 2.4 mg/dL (2.7-4.5); TOTAL BILIRUBIN 0.2 mg/dL (0.0-1.0)
[2021-05-04] MEDS ORDERED: FLUT16SP16 NS (07:56)
[2021-05-04] MEDS ORDERED: POLY17PO4 PO (07:56)
[2021-05-04] MEDS ORDERED: FERR236T3 PO (07:56)
[2021-05-04] MEDS ORDERED: PANT20TA2 PO (07:56)
[2021-05-04 08:40] LABS: BILIRUBIN,URINE NEGATIVE (NEGATIVE); BLOOD, URINE NEGATIVE (NEGATIVE); CLARITY/URINE CLEAR (CLEAR); COLOR,URINE YELLOW (YELLOW); GLUCOSE,URINE NEGATIVE (NEGATIVE); KETONES,URINE NEGATIVE (NEGATIVE); LEUKOCYTE ESTERASE ,URINE TRACE (NEGATIVE); NITRITE, URINE NEGATIVE (NEGATIVE); PH,URINE 8.5 (5.0-8.0); PROTEIN URINE NEGATIVE (NEGATIVE)
[2021-05-04] MEDS ORDERED: BACLOFEN 10 MG TABLET PO ONE (09:00)
[2021-05-04] MEDS ORDERED: ATORVASTATIN 10 MG TABLET PO ONE (09:00)
[2021-05-04] MEDS ORDERED: busPIRone HCL 5 MG TABLET PO ONE (09:00)
[2021-05-04] MEDS ORDERED: LORATADINE 10 MG TABLET PO PRN (09:00)
[2021-05-04] MEDS ORDERED: clonazePAM 0.5 MG TABLET PO PRN ×2 (09:00→09:15)
[2021-05-04] MEDS ORDERED: POLYETHYLENE GLYCOL 3350, 17 GM/ POWD.PACK PO ONE (09:00)
[2021-05-04] MEDS ORDERED: METOPROLOL SUCCINATE 25 MG TAB.SR.24H (TOPROL XL) PO ONE (09:00)
[2021-05-04] MEDS ORDERED: APIXABAN 2.5 MG TABLET PO ONE (09:00)
[2021-05-04] MEDS ORDERED: buPROPion HCL 150 MG XL TAB PO ONE (09:00)
[2021-05-04] MEDS ORDERED: AMIODARONE HCL 200 MG TABLET PO ONE (09:00)
[2021-05-04] MEDS ORDERED: ALBUTEROL SULFATE 0.083% 2.5 MG/3 ML VIAL.NEB INH PRN ×2 (09:00→09:15)
[2021-05-04] MEDS ORDERED: ACETAMINOPHEN 325 MG TABLET PO PRN (09:00)
[2021-05-04] MEDS ORDERED: FLUTICASONE PROPIONATE 50 mCg/SPRAY 16 GM NS SCH (09:00)
[2021-05-04 09:06] VITALS: BP_SYST 154
[2021-05-04 09:57] LABS: BACTERIA,URINE RARE /HPF (None Seen); RBC,URINE 0-3 /HPF (0-3)
[2021-05-04 11:45] VITALS: BP_SYST 140
[2021-05-04] MEDS ORDERED: DILT30TA36 PO (14:49)
[2021-05-04 14:56] VITALS: BP_SYST 140
[2021-05-04] MEDS ORDERED: BACLOFEN 10 MG TABLET PO SCH ×2 (15:00)
[2021-05-04] MEDS ORDERED: busPIRone HCL 5 MG TABLET PO SCH (15:00)
[2021-05-04 15:30] VITALS: BP_SYST 140
[2021-05-04] MEDS ORDERED: AMIODARONE HCL 200 MG TABLET PO SCH (21:00)
[2021-05-04] MEDS ORDERED: POLYETHYLENE GLYCOL 3350, 17 GM/ POWD.PACK PO SCH (21:00)
[2021-05-04] MEDS ORDERED: NON-FORMULARY MEDICATION PO SCH (21:00)
[2021-05-04] MEDS ORDERED: APIXABAN 2.5 MG TABLET PO SCH (21:00)
[2021-05-04] MEDS ORDERED: TRINTELLIX 20MG PO SCH (21:00)
[2021-05-05] MEDS ORDERED: ATORVASTATIN 10 MG TABLET PO SCH (09:00)
[2021-05-05] MEDS ORDERED: buPROPion HCL 150 MG XL TAB PO SCH (09:00)
[2021-05-05] MEDS ORDERED: PANTOPRAZOLE SODIUM 40 MG TAB PO SCH (09:00)
[2021-05-05] MEDS ORDERED: METOPROLOL SUCCINATE 25 MG TAB.SR.24H (TOPROL XL) PO SCH (09:00)
== END 2021-05-04 16:18 | disposition home or self-care (01) ==
LOC: SED 05:02 → STU 06:36
PROVIDERS: ADMIT Internal Medicine Hospice and Palliative Medicine; ATTEND Internal Medicine Hospice and Palliative Medicine
DX: I48.20 Chronic atrial fibrillation, unspecified (principal); Z20.822 Contact with and (suspected) exposure to COVID-19; I11.9 Hypertensive heart disease without heart failure; I48.0 Paroxysmal atrial fibrillation; F41.0 Panic disorder [episodic paroxysmal anxiety]; F41.8 Other specified anxiety disorders; Z79.01 Long term (current) use of anticoagulants; Z91.040 Latex allergy status; Z79.899 Other long term (current) drug therapy
CPT/HCPCS: 36415; 71045; 80053; 81000; 83735; 84100; 84443; 84484; 85025; 87081; 87426; 96374; 99284; G0378; J3490; 93005